=== PATIENT | male | born 1940 | race Two or more races ===

== ENCOUNTER 2016-11-18 23:17 | Inpatient (IN) | payer MEDICARE, OTHER ==
[~2016-11-18] VITALS: Ht 172.7 cm; Wt 87.1 kg
--- NOTE | 2016-11-18 23:20 | NUR ---
PT BIBRA W/ CO L SIDED SUBSTERNAL CP OF 01/17 THAT STARTED AT 1700. STATES THAT THE PAIN IS NON RADIATING. FROM REPORT, PT HAD ASA 162 AND X3 SPRAYS OF NITRO. PLACED PT ON MONITOR AND PUT ON O2 2L/MIN VIA NC. DR RUSSELL AT BEDSIDE FOR EVALUATION.
[2016-11-18] MEDS ORDERED: MORPHINE SULFATE INJ 2 MG/ML DISP.SYRIN ONE (23:25)
[2016-11-18] MEDS ORDERED: ASPIRIN EC 81 MG TABLET.DR PO ONE (23:25)
[2016-11-18] MEDS ORDERED: MORPHINE SULFATE INJ 2 MG/ML DISP.SYRIN IV ONE (23:30)
[2016-11-18] MEDS ORDERED: ASPIRIN 81 MG TAB.CHEW PO ONE (23:30)
[2016-11-18 23:35] LABS: BASOPHILS # (AUTO) 0.1 /CMM (0.0-0.2); BASOPHILS % (AUTO) 0.7 % (0.0-2.0); EOSINOPHILS # (AUTO) 0.5 /CMM (0.0-0.7); EOSINOPHILS % (AUTO) 5.8 % (0.0-6.0); HEMATOCRIT 43 % (39-51); HEMOGLOBIN 14.1 g/dL (13.5-17.5); LYMPHOCYTES # (AUTO) 2.1 /CMM (0.8-4.8); MEAN CORPUSCULAR HEMOGLOBIN 31 PG (26.0-33.0); MEAN CORPUSCULAR HGB CONC 33 g/dl (31.0-36.0); MEAN CORPUSCULAR VOLUME 93 fL (80-96); MONOCYTES # (AUTO) 0.6 /CMM (0.1-1.30); MONOCYTES % (AUTO) 7.9 % (2.0-12.0); NEUTROPHILS # (AUTO) 4.6 /CMM (1.8-8.9); NEUTROPHILS % (AUTO) 58.6 % (43.0-81.0); PLATELET COUNT (AUTO) 152 /CMM (150-450); WHITE BLOOD COUNT (AUTO) 7.8 K/uL (4.3-11.0)
[2016-11-18 23:45] LABS: CALCIUM, SERUM 8.5 mg/dL (8.5-10.1); CARBON DIOXIDE 27 mmol/L (21-32); CHLORIDE 107 mmol/L (98-107); CREATININE 1.2 mg/dL (0.6-1.3); GLUCOSE 116 mg/dL (74-106); POTASSIUM 3.6 mmol/L (3.5-5.1); SODIUM SERUM 143 mmol/L (136-145); UREA NITROGEN, BLOOD 18 mg/dL (7-18)
[2016-11-18 23:49] LABS: INR 0.92 (0.87-1.13); PROTHROMBIN TIME 9.8 SECS (9.5-12.7)
[2016-11-18 23:53] LABS: TROPONIN I < 0.017 ng/mL (0.00-0.056)
[2016-11-18 23:58] LABS: B-TYPE NATRIURETIC PEPTIDE 166 PG/ML (0-125)
[2016-11-19] VITALS (9 sets, daily range): BP systolic 103–139; BP diastolic 49–73
--- NOTE | 2016-11-19 01:34 | NUR ---
REPORT GIVEN TO EKTA STEVENSON FOR CONTINUATION OF CARE FOR TELE RM 314-2
--- NOTE | 2016-11-19 03:00 | NUR ---
ANESTHESIA ATTENDING NOTES RECEIVED PT FROM ER VIA STRETCHER, PT ABLE TO WALK FROM THE DOOR OF THE PATIENT'S ROOM TO THE BED SAFELY. PT IS A/O X 4, NO DISTRESS, NO SOB NOTED. ON 02 @ 2LPM VIA NC HOMERO WELL, O2 SATURATION IS 98 % AT THIS TIME, PER PT HE HAS CHEST PAIN 2/10 AT THIS TIME, BUT REFUSED PAIN MEDICATION, STATED THAT THE PAIN IS FADING. PT REFUSED BODY CHECK FROM WAIST - DOWN, RISK AND BENEFITS EXPLAINED X 3, STILL REFUSED. IV SITE ON LAC G # 18 INTACT AND PATENT, NO S/S OF INFILTRATION NOTED. ALL NEEDS ATTENDED AT THIS TIME. CALL LIGHT WITHIN REACH. WILL CONT TO MONITOR.
--- NOTE | 2016-11-19 03:10 | NUR ---
TRANSFERRED PT TO 3W RM 314-1 IN STABLE CONDITION UNDER ACLS PROTOCOL
[2016-11-19] MEDS ORDERED: HYDROCODONE/APAP 5/325MG 1 EACH TABLET PO PRN (03:30)
[2016-11-19] MEDS ORDERED: Z GUARD REMEDY 2 OZ OINT TP PRN (03:30)
[2016-11-19] MEDS ORDERED: NITROGLYCERIN 0.4 MG/TAB BOTTLE SL PRN (03:30)
[2016-11-19] MEDS ORDERED: ACETAMINOPHEN 325 MG TABLET PO PRN (03:30)
[2016-11-19] MEDS ORDERED: METOPROLOL TARTRATE 25 MG TABLET PO SCH (03:30)
[2016-11-19] MEDS ORDERED: MORPHINE SULFATE INJ 2 MG/ML DISP.SYRIN IV PRN (03:30)
[2016-11-19] MEDS ORDERED: ZOLPIDEM TARTRATE 5 MG TABLET PO PRN (03:30)
[2016-11-19] MEDS ORDERED: MAG HYDROX/AL HYDROX/SIMETH 30 ML UDC PO PRN (03:30)
[2016-11-19] MEDS ORDERED: MAGNESIUM HYDROXIDE 30 ML UDC PO PRN (03:30)
[2016-11-19] MEDS ORDERED: ENOXAPARIN SODIUM 40 MG/0.4 ML DISP.SYRIN SQ SCH ×2 (03:30→09:00)
[2016-11-19] MEDS ORDERED: ONDANSETRON HCL/PF 4 MG/2 ML VIAL IVP PRN (03:30)
[2016-11-19] MEDS ORDERED: ENOXAPARIN SODIUM 40 MG/0.4 ML DISP.SYRIN SQ ONE (03:51)
[2016-11-19] MEDS ORDERED: METOPROLOL TARTRATE 25 MG TABLET ONE (03:51)
--- NOTE | 2016-11-19 04:05 | NUR ---
PATIENT REFUSED METOPROLOL 25 MG AND LOVENOX 40 MG SQ X 3 . RISK AND BENEFITS EXPLAINED. BP : 120/63, HR : 65 AT THIS TIME, CHARGE NURSE ADAM AWARE. PT DENIES ANY CHEST PAIN AT THIS TIME. WILL CONTINUE TO MONITOR.
--- NOTE | 2016-11-19 06:27 | NUR ---
DIRECTOR OF ACADEMIC SUPPORT NOTES PT IN BED, ASLEEP AT THIS TIME, AROUSES EASILY. NO DISTRESS, NO SOB NOTED. RESPIRATION IS EVEN AND UNLABORED. ABDOMEN IS SOFT AND NON DISTENDED. ON CARDIAC DIET HOMERO WELL. IV SITE ON LAC INTACT AND PATENT . NO S/S OF INFILTRATION NOTED. PT IS AMBULATORY. PT DOESN'T REMEMBER WHAT ARE THE NAMES OF THE MEDICATION THAT HE'S TAKING AT HOME, BUT REMEMBERS THE USE OF IT, PER PATIENT [facility] HAS ALL HIS MEDICATION PRESCRIPTION BUT THEY OPENS AT 10 AM , WILL ENDORSE TO ARVIND SHIFT. PT DENIES ANY PAIN OR DISCOMFORT AT THIS TIME. ALL NEEDS ATTENDED. KEPT COMFORTABLE. CALL LIGHT WITHIN REACH. WILL ENDORSE TO NEXT SHIFT FOR ARUN.
--- NOTE | 2016-11-19 07:05 | NUR ---
TYPE SOLDERING MACHINE TENDER OPENING NOTES RECEIVED PT FROM NIGHTSHIFT NURSE IN STABLE CONDITION. A/O X4. ON 2L O2 VIA NC. NO SOB OR SIGNS OF DISTRESS NOTED. BREATHING IS EVEN AND UNLABORED. ON TELE MONITOR READING SR. NO COMPLAINTS OF CHEST PAIN OR TIGHTNESS AT THIS TIME. IV ON LEFT AC 18G PATENT AND INTACT. NO REDNESS OR INFILTRATION NOTED. BED IN LOW LOCKED POSITION, SIDE RAILS UP X2, CALL LIGHT WITHIN REACH. WILL CONTINUE TO MONITOR.
[2016-11-19] MEDS: ASPIRIN EC 81 MG TABLET.DR PO SCH (08:38)
[2016-11-19] MEDS: PANTOPRAZOLE 40 MG TABLET.DR PO SCH (08:38)
[2016-11-19] MEDS: METOPROLOL TARTRATE 25 MG TABLET PO SCH ×2 (08:39→21:39)
[2016-11-19] MEDS ORDERED: ALBUTEROL FS 2.5 MG/3 ML VIAL.NEB NEB PRN (10:30)
[2016-11-19] MEDS: CLOPIDOGREL BISULFATE 75 MG TABLET PO SCH ×2 (10:30→23:06)
[2016-11-19 10:32] LABS: ALBUMIN 3.3 g/dL (3.4-5.0); BILIRUBIN,DIRECT 0.1 mg/dL (0.0-0.2); BILIRUBIN,TOTAL 0.3 mg/dL (0.2-1.0)
[2016-11-19] MEDS ORDERED: NITR0.4T6 SL (11:14)
[2016-11-19] MEDS ORDERED: TICA90TA PO (11:14)
[2016-11-19] MEDS ORDERED: HYDR-4076 PO (11:14)
[2016-11-19] MEDS ORDERED: RANO500T3 PO (11:14)
[2016-11-19] MEDS ORDERED: METO25TA6 PO (11:14)
[2016-11-19] MEDS ORDERED: ISOS60TA4 PO (11:14)
[2016-11-19] MEDS ORDERED: ASPI81TA2 PO (11:14)
[2016-11-19] MEDS ORDERED: DEXL60CA3 PO (11:14)
[2016-11-19] MEDS ORDERED: TIMO5DRO18 EACHEYE (11:14)
[2016-11-19] MEDS ORDERED: CLOP75TA2 PO (11:14)
[2016-11-19] MEDS ORDERED: HYDR-3326 PO (11:14)
[2016-11-19] MEDS ORDERED: SIMV40TA5 PO (11:14)
[2016-11-19] MEDS ORDERED: VALS80TA2 PO (11:14)
[2016-11-19 13:15] LABS: APPEARANCE,URINE CLEAR (CLEAR); BILIRUBIN,URINE NEGATIVE (NEGATIVE); BLOOD, URINE 2+ Ery/uL (NEGATIVE); COLOR,URINE YELLOW (YELLOW); KETONES,URINE NEGATIVE (NEGATIVE); LEUKOCYTE ESTERASE ,URINE NEGATIVE (NEGATIVE); NITRITE, URINE NEGATIVE (NEGATIVE); PROTEIN,URINE NEGATIVE (NEGATIVE); UGLUCOSE NEGATIVE (NEGATIVE); UROBILINOGEN,URINE 0.2 EU/dL (0.2)
[2016-11-19 13:17] LABS: WBC,URINE 0-2 /HPF (0-3)
[2016-11-19 13:18] LABS: BACTERIA,URINE None seen /HPF (None Seen); SQUAMOUS EPITHELIAL CELL,UR 0-2 /HPF (None Seen)
--- NOTE | 2016-11-19 18:47 | NUR ---
TRANSPORTATION ANALYST CLOSING NOTES PT IN STABLE CONDITION. NO ACUTE CHANGES IN CONDITION OCCUPIED DURING MY SHIFT. NO SOB OR SIGNS OF DISTRESS. BREATHING EVEN AND UNLABORED. NO COMPLAINTS OF PAIN AT THIS TIME. ALL PT NEEDS MET. ALL ORDERS CARRIED OUT ACCORDINGLY. ALL SAFETY MEASURES IN PLACE. WILL ENDORSE TO NIGHTSHIFT NURSE FOR ARUN
--- NOTE | 2016-11-19 19:20 | NUR ---
nuclear scientist NOTES RECEIVED PT IN BED, ASLEEP AT THIS TIME. AROUSES EASILY. PT IS A/O X 4, NO DISTRESS, NO SOB NOTED. ON 02 @ 2LPM VIA NC HOMERO WELL, O2 SATURATION IS 95 % AT THIS TIME, DENIES ANY PAIN OR DISCOMFORT AT THIS TIME. IV SITE ON LAC G # 18 INTACT AND PATENT, NO S/S OF INFILTRATION NOTED. ALL NEEDS ATTENDED. CALL LIGHT WITHIN REACH. WILL CONT TO MONITOR.
[2016-11-19] MEDS ORDERED: VALSARTAN 80 MG TABLET PO SCH (21:00)
[2016-11-19] MEDS ORDERED: ISOSORBIDE MONONITRATE (30MG) 30 MG TAB.SR.24H PO SCH (21:00)
[2016-11-19] MEDS ORDERED: POLYVINYL ALCOHOL 15 ML BOTTLE EACHEYE PRN (21:30)
[2016-11-19] MEDS ORDERED: SIMVASTATIN 20 MG TABLET PO SCH (22:00)
--- NOTE | 2016-11-19 22:16 | NUR ---
PT WAS SCREAMING AND MAD , AND ASKING FOR SAME MEDICATION THAT HE'S BEEN TAKING AT HOME, INITIAL BP WAS 139/61 AT THIS TIME. PT HAS AN ORDER FOR METOPROLOL 25 MG AT THIS TIME. PT IS ASKING FOR ISOSORBIDE, DIOVAN AND PLAVIX. PT REFUSED PLAVIX AT 9AM THIS MORNING. CHARGE NURSE MELVI AWARE AND SPOKE TO THE PT. PLACED A CALL TO DR. NAVJOT PHILLIPS AND RELAYED PT'S CONCERN, PER DR. MORFIN TO CONTINUE ALL HIS MEDICATIONS FROM HOME AND OK TO GIVE AT SAME TIME. PER DR. MORFIN OK TO GIVE PLAVIX NOW. WILL INFORM PHARMACY IN AM.
--- NOTE | 2016-11-19 22:30 | NUR ---
PT CHANGED HIS MIND REGARDING DIOVAN , HE DOESN'T WANT TO TAKE IT ANYMORE, RISK AND BENEFITS EXPLAINED. MELVI CHARGE NURSE AWARE, AND ALSO WILL VERIFY WITH THE PHARMACY REGARDING THE DOSE. PT CANNOT RECALL HOW MANY DOSE HE IS TAKING AT HOME, PER PT TO CALL [facility] BUT PHARMACY WILL OPEN TOMORROW AT 10 AM. WILL ENDORSE TO NEXT SHIFT.
[2016-11-20] VITALS: BP 137/63
[2016-11-20] MEDS ORDERED: NITROGLYCERIN 30 GM TUBE TP SCH
[2016-11-20] MEDS ORDERED: VALSARTAN 80 MG TABLET ONE (03:51)
[2016-11-20 04:00] VITALS: BP 131/73
[2016-11-20] MEDS ORDERED: VALSARTAN 80 MG TABLET PO ONE (04:00)
--- NOTE | 2016-11-20 04:15 | NUR ---
PT C/O CHEST PAIN, 12/18. NITRO GIVEN ORDERED. PER PT MEDICINE EFFECTIVE. DENIES ANY CHEST PAIN AT THIS TIME. WILL CONT TO MONITOR.
--- NOTE | 2016-11-20 06:20 | NUR ---
PT REFUSED BLOOD DRAW X 3 . RISK AND BENEFITS EXPLAINED, PT STILL REFUSED.
--- NOTE | 2016-11-20 06:55 | NUR ---
TOOLS ADMINISTRATOR NOTES RECEIVED PT IN BED, ASLEEP AT THIS TIME. AROUSES EASILY. PT IS A/O X 4, NO DISTRESS, NO SOB NOTED. ON RA 95 % AT THIS TIME, REMOVES HIS O2 CANNULA. DENIES ANY PAIN OR DISCOMFORT AT THIS TIME. IV SITE ON LAC G # 18 INTACT AND PATENT, NO S/S OF INFILTRATION NOTED. ALL NEEDS ATTENDED. CALL LIGHT WITHIN REACH. WILL ENDORSE TO NEXT SHIFT FOR ARUN.
[2016-11-20 07:06] VITALS: BP 141/73
[2016-11-20] MEDS: PANTOPRAZOLE 40 MG TABLET.DR PO SCH (07:30)
--- NOTE | 2016-11-20 07:30 | NUR ---
SUPERVISOR CELL MAINTENANCE OPENING RECEIVED PATIENT SLEEPING AWAKE TO NAME. PATIENT DENIES PAIN, SOB DIFFICULTY BREATHING. SOON I WAKED PATIENT UP HE STARTS TO ARGUE ABOUT MEDICATIONS BEFORE I CAN SPEAK. SAID FOR 4 DAYS WE HAVE DONE NOTHING ABOUT HIS MEDICATIONS..REMINDED PATIENT HE CAME IN YESTERDAY AND WE HAVE ALREADY CONTACTED HIS PHARMACY AND RECEIVED HIS MEDICATION LIST HE DID NOT REMEMBER THE NAMES OF HIS MEDICINES AND ALL WE NEED TO DO IS HAVE THE DR REVIEW. PATIENT CONTINUES TO INTERRUPT ME NOT ALLOWING ME TO COMPLETE A SENTENCE AND STARTS TO YELL AT ME THAT HE IS GOING HOME TODAY. INFORMED PATIENT I WILL PASS THIS ON TO THE DOCTOR AND IF HE IS MEDICALLY CLEARED HE MAY BE DISCHARGED, PATIENT CONTINUES TO DEMAND HE WILL LEAVE. PATIENT GIVEN CALL LIGHT, RAILS UPX3 FOR SAFETY, BED LOWERED AND LOCKED. PATIENT NOT ANSWERING ME IF HE NEEDS ANYTHING AT THE MOMENT. TOLD PATIENT TO PLEASE CALL MYSELF OR YOSEPH MENDEZ IF HE NEEDS ANYTHING. TELE A PACING 70
[2016-11-20 08:00] VITALS: BP 141/73
[2016-11-20] MEDS: ASPIRIN EC 81 MG TABLET.DR PO SCH (08:41)
[2016-11-20] MEDS: METOPROLOL TARTRATE 25 MG TABLET PO SCH (08:42)
[2016-11-20 09:00] VITALS: BP 140/73
--- NOTE | 2016-11-20 09:15 | NUR ---
MS RN NOTES SPOKE WITH PATIENT EDUCATED ON LAB DRAWS AND WHY IMPORTANT. PER PATIENT HE WILL ALLOW LAB TO DRAW
[2016-11-20 09:39] LABS: BASOPHILS % (AUTO) 0.3 % (0.0-2.0); EOSINOPHILS # (AUTO) 0.3 /CMM (0.0-0.7); EOSINOPHILS % (AUTO) 3.6 % (0.0-6.0); HEMATOCRIT 43 % (39-51); HEMOGLOBIN 14.3 g/dL (13.5-17.5); LYMPHOCYTES # (AUTO) 1.5 /CMM (0.8-4.8); LYMPHOCYTES % (AUTO) 19.7 % (20.0-44.0); MEAN CORPUSCULAR HEMOGLOBIN 31 PG (26.0-33.0); MEAN CORPUSCULAR HGB CONC 33 g/dl (31.0-36.0); MEAN CORPUSCULAR VOLUME 93 fL (80-96); MONOCYTES # (AUTO) 0.3 /CMM (0.1-1.30); MONOCYTES % (AUTO) 3.9 % (2.0-12.0); NEUTROPHILS # (AUTO) 5.6 /CMM (1.8-8.9); NEUTROPHILS % (AUTO) 72.5 % (43.0-81.0); PLATELET COUNT (AUTO) 164 /CMM (150-450); RDW COEFFICIENT OF VARIATION 13.9 (11.5-15.0); RED BLOOD CELL COUNT(AUTO) 4.63 MIL/uL (4.5-6.0); WHITE BLOOD COUNT (AUTO) 7.8 K/uL (4.3-11.0)
[2016-11-20] MEDS ORDERED: ISOSORBIDE MONONITRATE (30MG) 30 MG TAB.SR.24H PO SCH ×2 (09:45→22:00)
[2016-11-20 09:52] LABS: CALCIUM, SERUM 8.7 mg/dL (8.5-10.1); CREATININE 1.3 mg/dL (0.6-1.3); MAGNESIUM 2.2 mg/dL (1.8-2.4); PHOSPHORUS 3.3 mg/dL (2.5-4.9); POTASSIUM 3.8 mmol/L (3.5-5.1)
[2016-11-20] MEDS ORDERED: VALSARTAN 80 MG TABLET PO SCH ×2 (10:00→22:00)
[2016-11-20] MEDS ORDERED: METO25TA20 PO (10:10)
[2016-11-20 10:21] VITALS: BP 145/71
--- NOTE | 2016-11-20 10:28 | NUR ---
MS RN NOTES REMOVED PATIENT IV PRESSURE AND DRESSING APPLIED NO BLEEDING NOTED. PATIENT EDUCATED ON DISCHARGE MATERIAL AND STATED UNDERSTANDING. MINING MACHINERY ASSEMBLER CARD GIVEN AND PATIENT AWARE TO FOLLOW UP IN 1-2 WEEKS. PATIENT STATES UNDERSTANDING AND IS WAITING FOR FAMILY MEMBER TO PICK HIM UP.
[2016-11-20 10:43] LABS: THYROID STIMULATING HORMONE 4.116 uIU/mL (0.358-3.74)
--- NOTE | 2016-11-20 10:43 | NUR ---
MS RN NOTES PATIENT GIVEN RX. SIGNED ALL DC PAPERWORK AND STATED UNDERSTANDING. WAITING TO BE PICKED UP BY DAUGHTER
--- NOTE | 2016-11-20 10:48 | NUR ---
MS RN NOTES PATIENT ASSISTED TO PRIVATE CAR BY VANESSA HAMEED. STABLE NO COMPLICATIONS
[2016-11-21] MEDS ORDERED: VALSARTAN 80 MG TABLET PO SCH (22:00)
== END 2016-11-20 10:50 | disposition home or self-care (01) | DRG 206 ==
LOC: ER 23:20 → TELE 11-19 02:35 → MED 11-20 09:19
PROVIDERS: ADMIT Internal Medicine; ATTEND Internal Medicine
DX: M94.0 Chondrocostal junction syndrome [Tietze] (principal); E44.0 Moderate protein-calorie malnutrition; I50.32 Chronic diastolic (congestive) heart failure; I10 Essential (primary) hypertension; Z95.5 Presence of coronary angioplasty implant and graft; Z86.73 Personal history of transient ischemic attack (TIA), and cerebral infarction without residual deficits; I11.0 Hypertensive heart disease with heart failure; I25.10 Atherosclerotic heart disease of native coronary artery without angina pectoris; E78.5 Hyperlipidemia, unspecified; Z96.649 Presence of unspecified artificial hip joint; F17.210 Nicotine dependence, cigarettes, uncomplicated; J44.9 Chronic obstructive pulmonary disease, unspecified; F10.20 Alcohol dependence, uncomplicated; E66.9 Obesity, unspecified; I25.2 Old myocardial infarction
CPT/HCPCS: 36415; 70450-TC; 71010-TC; 72125-TC; 80048-TC; 80061-TC; 80076-TC; 80305; 81000-TC; 83735-TC; 83880; 84100-TC; 84443-TC; 84484-TC; 85025-TC; 85730-TC; 86592; 87081-TC; 93307-TC; 93350-TC; A4606; J1650; J2270; Z7610